=== PATIENT | male | born 1940 | race Caucasian/White ===

== ENCOUNTER 2016-12-03 08:23 | Emergency (ER) | payer MEDICARE, OTHER ==
--- NOTE | ~2016-12-03 | CR169 ---
[facility] A Service of [facility] & [facility] RADIOLOGY TEXT RESULTS PATIENT: SANDOVAL JOHNSON LOCATION: CFTX : 38 UNIT #: [id number] AGE: [address]: Leonor Garcia APRN SEX: M ORDER DR: [id number] [facility] [address] [place], [place] [address] [id number] P MR#: [id number] Acc #: [id number] NAME: SANDOVAL JOHNSON : 1940 SEX: M STUDY DATE/TIME: 12/03/2016 9:21 UNIT: [facility] ROOM: STUDY DESCRIPTION: CR Knee 2 Views Lt Ordering Physician: Brian Jenkins M.D. Primary Care Physician: Dom Modi M.D. MEDICAL IMAGING REPORT This report is preliminary unless electronic signature is present EXAM Left knee 2 views INDICATION Pain and swelling left knee for 1 day. COMPARISON 10/31/2009. 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 There is no dislocation or evidence for acute fracture. IMPRESSION Advanced patellofemoral compartment degenerative changes and also milder degenerative changes of the medial and lateral compartments. There is a small knee joint effusion. No acute fracture. Dictated by... Basil Obregon M.D. THIS IS AN ELECTRONICALLY VERIFIED REPORT Basil Obregon M.D. at 12/04/2016 7:35 AM CASSIUS/olga TD: 12/03/2016 10:20 JOB #: [id number] MEDICAL IMAGING REPORT Page 1 of 1 COPY
[~2016-12-03 08:23] MED LIST: ASPIRIN81 M1 PO; HYDROCHLOROTH12.5 MG PO; NO ROUTINE MEDS; NORVASC PO
== END 2016-12-03 11:00 | disposition home or self-care (01) ==
LOC: CED 08:23 → CFTX 08:23
DX: M25.462 Effusion, left knee (principal); I10 Essential (primary) hypertension; Z85.46 Personal history of malignant neoplasm of prostate; Z88.0 Allergy status to penicillin
CPT/HCPCS: 73560; 99283

== ENCOUNTER → 2017-03-08 | Outpatient (CLI) | payer MEDICARE, OTHER | END | disposition home or self-care (01) | LOC: CLAB 09:46 | DX: C61 Malignant neoplasm of prostate (principal) | CPT/HCPCS: 36415; 84153 ==

== ENCOUNTER 2017-03-31 10:06 | Emergency (ER) | payer MEDICARE, OTHER ==
[~2017-03-31] VITALS: Ht 177.8 cm; Wt 95.7 kg
== END 2017-03-31 11:06 | disposition home or self-care (01) ==
LOC: CFTX 10:06 → CED 10:06 → CFTX 10:56
DX: M17.12 Unilateral primary osteoarthritis, left knee (principal); M13.162 Monoarthritis, not elsewhere classified, left knee; I10 Essential (primary) hypertension; Z85.46 Personal history of malignant neoplasm of prostate; Z88.0 Allergy status to penicillin
CPT/HCPCS: 96372; 99283; J1885